=== PATIENT | male | born 1995 | race Caucasian/White ===

== ENCOUNTER 2018-06-18 02:39 | Emergency (ER) | payer SELFPAY ==
[~2018-06-18] VITALS: Ht 193 cm; Wt 72.6 kg
[2018-06-18 02:53] VITALS: TEMP 36.4; Ht 193 cm; Wt 72.6 kg
[2018-06-18] MEDS ORDERED: SODIUM CHLORIDE 0.9% 1000ML 1,000 ML IV ONE ×2 (03:00→04:45)
[2018-06-18] MEDS ORDERED: FENTANYL CITRATE INJ 50 MCG/1 ML 2 ML VIAL IV ONE (03:00)
[2018-06-18 03:14] LABS: BASO % 0.3 %; BASO ABS # 0.03 K/uL (0-0.2); HEMATOCRIT 53.1 % (42-52); IG# 0.03 K/uL (0.00-0.02); LYMPH % 27.9 %; LYMPH ABS # 2.71 K/uL (1.2-3.4); MEAN CELL VOLUME 94.8 fL (80-100); MEAN CORPUSCULAR HEMOGLOBIN 32.1 pg (25-34); MEAN CORPUSCULAR HGB CONC 33.9 g/dl (32-36); MEAN PLATELET VOLUME 12.4 fL (7.4-10.4); MONO ABS # 0.68 K/uL (0.11-0.59); NEUT % 64.5 %; NEUT ABS # 6.25 K/uL (1.4-6.5); PLATELET COUNT 175 K/uL (130-400); RED CELL DISTRIBUTION WIDTH CV 14.5 % (11.5-14.5); RED CELL DISTRIBUTION WIDTH SD 50.3 fL (36.4-46.3)
[2018-06-18] MEDS ORDERED: CEFAZOLIN SOD 1000MG/7.5 ML IV PUSH IV STA (03:16)
[2018-06-18 03:34] LABS: ALBUMIN 3.9 gm/dl (3.4-5.0); CALCIUM 8.9 mg/dl (8.5-10.1); CREATININE 1.13 mg/dl (0.60-1.40); POTASSIUM 3.6 mmol/L (3.5-5.1); TOTAL PROTEIN 7.8 gm/dl (6.4-8.2)
[2018-06-18] MEDS ORDERED: MoRPHine SULFATE 4 MG/ML 1 ML CARP\\VIAL IV ONE (04:00)
[2018-06-18] MEDS: MoRPHine SULFATE 4 MG/ML 1 ML CARP\\VIAL IV PRN ×3 (05:07→07:25)
--- NOTE | 2018-06-18 05:34 | EMERGENCY ROOM VISIT NOTE ---
History First contact with patient: 02:45 Chief Complaint: ANKLE PAIN Stated Complaint: ANKLE PAIN History of Present Illness The patient is a 22 year old male who presents to the Emergency Room with complaints of injury to his right ankle that occurred at approximately 12:15 AM , roughly 30 minutes prior to arrival. 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 He was walking with his friends, and decided to jump up into the air and touch a pole. The patient states that he has done this thousands of times in the past, and with his height and ability to jump he is able to dunk a basketball. The patient came down from jumping into the air, he landed awkwardly, and had immediate pain and deformity of his right ankle. EMS was contacted, and the patient now arrives for evaluation. The patient does not report other injury. He does have a small amount of blood on the lateral aspect of the right ankle as well as some abrasion in this area. He believes he is up-to-date on his tetanus. The patient was not able to walk after his injury. He last had a meal around 2200, roughly 2 hours ago. He states that he did drink water immediately after his injury as his friend gave him a water bottle before the ambulance arrived. The patient rates his discomfort at 10/10. Review of Systems More than 10 systems were reviewed and otherwise negative with the exception of history of present illness. Past Medical/Surgical History No chronic medical disease Family History No pertinent family history Social History Smoking Status: Current Every Day Smoker Occupation Status: [employer] student Current/Historical Medications No Active Prescriptions or Reported Meds Physical Exam Vital Signs Date Time Temp Pulse Resp B/P (MAP) Pulse Ox O2 Delivery O2 Flow Rate FiO2 06/18/18 06:08 77 112/56 92 Room Air 06/18/18 04:08 84 109/69 99 Room Air 06/18/18 02:53 36.4 64 20 97/53 98 Room Air Physical Exam VITALS: Vitals are noted on the nurse's note and reviewed by myself. Vital signs stable. GENERAL: Well-developed, well-nourished, [place] male who is in moderate discomfort secondary to his stated complaint. He is cooperative with examination. HEAD: Normocephalic atraumatic. EARS: External ear normal. External auditory canals clear, tympanic membranes pearly littlejohn without erythema or effusion bilaterally. EYES: Pupils equal round and reactive to light and accommodation. Conjunctivae without injection, sclerae without icterus. Extraocular movements intact. NOSE: Patent, turbinates without inflammation or discharge. MOUTH: Mucous membranes moist. Tonsils are not enlarged. Pharynx without erythema, blood, or exudate. Uvula midline. Airway patent. NECK: Supple without nuchal rigidity. No lymphadenopathy. No thyromegaly. Cervical spine is nontender. HEART: Regular rate and rhythm without murmurs gallops or rubs. LUNGS: Clear to auscultation bilaterally without wheezes, rales or rhonchi. No retractions or accessory muscle use. ABDOMEN: Positive normal bowel sounds x 4. Soft, nontender, without masses or organomegaly. No guarding or rebound tenderness. No tenderness with pelvic rocking. BACK: No tenderness throughout the thoracolumbar spine. No significant paravertebral spasm or step-off. MUSCULOSKELETAL: Deformity is noted to the right ankle with edema and minimal ecchymosis. Diffuse tenderness is noted in this area. There is a superficial abrasion along the more distal aspect of the right ankle, however there is a ovoid avulsion type injury superior/proximal to this. There is minimal bleeding in this area. Sensation is intact to the toes of the right lower extremity. He is able to wiggle his toes. Neurovascular status this appears to be intact. Compression of the mid tib-fib causes tenderness into the ankle on the right side. There is no tenderness of the right knee. The remaining extremities appear without injury. NEURO: Patient was alert and oriented to person place and time. CN II through XII grossly intact. . Medical Decision & Procedures ER Provider Diagnostic Interpretation: R ANKLE 2 VIEWS CLINICAL HISTORY: RT ANKLE INJURY trauma. Pain. COMPARISON: None. DISCUSSION: Extensively comminuted trimalleolar fracture right ankle. Ankle mortise is disrupted. Fractures extend to the articular services. Subtalar joint appears to be intact. Soft tissue edema. IMPRESSION: Extensively comminuted trimalleolar fracture right ankle. Laboratory Results 06/18/18 03:04 Red Blood Count 5.60, Mean Corpuscular Volume 94.8, Mean Corpuscular Hemoglobin 32.1, Mean Corpuscular Hemoglobin Concent 33.9, Mean Platelet Volume 12.4, Neutrophils (%) (Auto) 64.5, Lymphocytes (%) (Auto) 27.9, Monocytes (%) (Auto) 7.0, Eosinophils (%) (Auto) 0.0, Basophils (%) (Auto) 0.3, Neutrophils # (Auto) 6.25, Lymphocytes # (Auto) 2.71, Monocytes # (Auto) 0.68, Eosinophils # (Auto) 0.00, Basophils # (Auto) 0.03 06/18/18 03:04 Test 06/18/18 03:04 White Blood Count 9.70 K/uL (4.8-10.8) Red Blood Count 5.60 M/uL (4.7-6.1) Hemoglobin 18.0 g/dL (14.0-18.0) Hematocrit 53.1 % (42-52) Mean Corpuscular Volume 94.8 fL (80-100) Mean Corpuscular Hemoglobin 32.1 pg (25-34) Mean Corpuscular Hemoglobin Concent 33.9 g/dl (32-36) Platelet Count 175 K/uL (130-400) Mean Platelet Volume 12.4 fL (7.4-10.4) Neutrophils (%) (Auto) 64.5 % Lymphocytes (%) (Auto) 27.9 % Monocytes (%) (Auto) 7.0 % Eosinophils (%) (Auto) 0.0 % Basophils (%) (Auto) 0.3 % Neutrophils # (Auto) 6.25 K/uL (1.4-6.5) Lymphocytes # (Auto) 2.71 K/uL (1.2-3.4) Monocytes # (Auto) 0.68 K/uL (0.11-0.59) Eosinophils # (Auto) 0.00 K/uL (0-0.5) Basophils # (Auto) 0.03 K/uL (0-0.2) RDW Standard Deviation 50.3 fL (36.4-46.3) RDW Coefficient of Variation 14.5 % (11.5-14.5) Immature Granulocyte % (Auto) 0.3 % Immature Granulocyte # (Auto) 0.03 K/uL (0.00-0.02) Anion Gap 11.0 mmol/L (3-11) Est Creatinine Clear Calc Drug Dose 106.2 ml/min Estimated GFR () 107.1 Estimated GFR (Non- 92.4 BUN/Creatinine Ratio 9.0 (10-20) Calcium Level 8.9 mg/dl (8.5-10.1) Total Bilirubin 0.6 mg/dl (0.2-1) Aspartate Amino Transf (AST/SGOT) 28 U/L (15-37) Alanine Aminotransferase (ALT/SGPT) 32 U/L (12-78) Alkaline Phosphatase 134 U/L (45-117) Total Protein 7.8 gm/dl (6.4-8.2) Albumin 3.9 gm/dl (3.4-5.0) Globulin 3.9 gm/dl (2.5-4.0) Albumin/Globulin Ratio 1.0 (0.9-2) Ethyl Alcohol mg/dL 40.0 mg/dl (0-3) Medications Administered Medications (Trade) Dose Ordered Sig/Al Route Start Time Stop Time Status Last Admin Dose Admin Sodium Chloride 1,000 ml @ 999 mls/hr Q1H1M ONCE IV 06/18/18 03:00 06/18/18 04:00 DC 06/18/18 03:02 999 MLS/HR Fentanyl Citrate (Fentanyl Inj) 50 mcg NOW ONCE IV 06/18/18 03:00 06/18/18 03:01 DC 06/18/18 03:03 50 MCG Cefazolin Sodium (Cefazolin 1000mg Iv Push) 2,000 mg NOW STAT IV 06/18/18 03:16 06/18/18 03:17 DC 06/18/18 03:25 2,000 MG Morphine Sulfate (MoRPHine SULFATE INJ) 4 mg NOW ONCE IV 06/18/18 04:00 06/18/18 04:01 DC 06/18/18 04:06 4 MG Morphine Sulfate (MoRPHine SULFATE INJ) 4 mg Q30M PRN IV 06/18/18 04:45 07/02/18 04:44 06/18/18 05:52 4 MG Sodium Chloride 1,000 ml @ 200 mls/hr Q5H ONCE IV 06/18/18 04:45 06/18/18 09:44 06/18/18 04:57 200 MLS/HR ED Course Physical exam and history were performed. Nursing notes, EMR, and Medication List were personally reviewed. Patient appears to have suffered injury to his right ankle as described above. The patient appears with deformity on examination, and is quite uncomfortable. IV access was established and basic labs were obtained. The patient was given IV fentanyl and IV normal saline here in the department. X-rays were performed. The patient's blood work is as above and was reviewed. He does not have a significant elevation of his white blood cell count, gross anemia, bandemia, or significant electrolyte imbalance. His alcohol is only 40 (80 is legal limit for driving based on our lab). His remaining labs are otherwise not diagnostic. The patient's x-rays were reviewed by myself and my attending, Dr. Almaraz. The patient appears to have a comminuted fracture of the distal tibia and fibula. This appears to affect the joint space. The formal radiology read is as above.. The patient was given a dose of Ancef as there is considerable concern for open fracture based on his exam and fracture findings. We discussed the case with the on-call orthopedist, Dr. Hinton, who did review the x-rays himself. Based on the extensive injury and high concern for open fracture Dr. Hinton recommended Betadine gauze and Ortho-Glass splinting. The patient will need to be seen by the trauma service due to the extensive injury and expected surgical care that we are unable to provide at this facility. This recommendation was discussed with the patient, who states he is a [employer] student, and prefers staying within the [employer] [facility] [employer] [facility] network. The patient thus prefers going to [facility]. I did speak with orthopedist, Dr. Bearden, as well as ED physician Dr. Aaron regarding the patient. They do accept the patient as an ER to ER transfer. Appropriate consents were obtained and paperwork was completed. The patient did require additional pain medication once the fentanyl wore off. He did receive PRN morphine here in the department and remained NPO. The patient remained in stable condition until the time of transfer. The chart was completed utilizing [email or web address] Speech Voice Recognition Software. Grammatical errors, random word insertions, pronoun errors, and incomplete sentences are an occasional consequence of this system due to software limitations, ambient noise, and hardware issues. Any formal questions or concerns about the content, text, or information contained within the body of this dictation should be directly addressed to the provider for clarification. . Medical Decision Differential diagnosis includes, but is not limited to: Sprain, strain, fracture , dislocation, subluxation, contusion, and others Impression Primary Impression: Fracture of ankle, right, open Departure Information Prescriptions No Active Prescriptions or Reported Meds Referrals [facility] (PCP) Patient Instructions My [facility]
--- NOTE | 2018-06-18 05:57 | DIAGNOSTIC IMAGING REPORT ---
R ANKLE 2 VIEWS CLINICAL HISTORY: RT ANKLE INJURY trauma. Pain. COMPARISON: None. DISCUSSION: Extensively comminuted trimalleolar fracture right ankle. Ankle mortise is disrupted. Fractures extend to the articular services. Subtalar joint appears to be intact. Soft tissue edema. IMPRESSION: Extensively comminuted trimalleolar fracture right ankle. The above report was generated using voice recognition software. It may contain grammatical, syntax or spelling errors. Electronically signed by: Devin Navarrete M.D. 06/18/2018 5:55 AM Dictated Date/Time: 06/18/2018 5:55 AM
[2018-06-18 08:03] VITALS: BP 136/80; PULSE 78; O2SAT 92
== END 2018-06-18 08:04 | disposition short-term general hospital (02) ==
LOC: C.EDA 02:42
DX: S82.851B Displaced trimalleolar fracture of right lower leg, initial encounter for open fracture type I or II (principal); X50.1XXA Overexertion from prolonged static or awkward postures, initial encounter; Y93.89 Activity, other specified; F17.200 Nicotine dependence, unspecified, uncomplicated